=== PATIENT | female | born 1940 | race Caucasian/White ===

== ENCOUNTER → 2017-02-15 07:10 | Outpatient (CLI) | payer MEDICARE, BC ==
[~2017-02-15 07:10] MED LIST: ASPIRIN325 MG PO; BAYER CHEWABLE81 MG PO; CARAFATE1 G/10 ML PO; CRESTOR40 MG PO; FISH/FLAX/BORAGE; LANTUS SOL100 UNIT/1 SC; LASIX20 MG PO; LEVEMIR100 U/M1 INJ; LISINOPRIL5 MG PO; MULTIPLE VITAMI1 TA1 PO; NEXIUM40 MG PO; NORVASC10 MG PO; NOVOLOG MI100 UNIT/1; NOVOLOG100 U/M1 SC; PROTONIX I40 MG/VIAL PO; SYNTHROID88 MCG PO; TOPROL XL25 MG PO; TYLENOL PM1 TAB PO; ZYLOPRIM100 MG PO
[2017-02-15 07:46] LABS: ALBUMIN 3.3 g/dL (3.4-5.0); BILIRUBIN - DIRECT 0.06 mg/dL (0.00-0.30); BILIRUBIN - INDIRECT 0.31 mg/dL (0.00-1.00); BILIRUBIN - TOTAL 0.37 mg/dL (0.2-1.3); PROTEIN - SERUM 7.1 g/dL (6.4-8.2)
== END | disposition home or self-care (01) ==
LOC: D.US 01-21 09:30
PROVIDERS: Internal Medicine Gastroenterology
DX: K76.0 Fatty (change of) liver, not elsewhere classified (principal)

== ENCOUNTER 2017-02-20 12:06 | Day surgery (SDC) | payer MEDICARE, BC ==
[~2017-02-20] VITALS: Ht 157.5 cm; Wt 109.5 kg
--- NOTE | ~2017-02-20 | OP ---
PATIENT NAME: DARLYN JOHN MEDICAL RECORD: [id number] :40 LOCATION:D.OPS ADMISSION DATE: SURGEON: JOSUE SEYMOUR DO DATE OF OPERATION: 02/20/2017 PROCEDURE: Colonoscopy with snare polypectomy, cold forceps biopsy, and submucosal injection. INDICATION: Colon cancer screening. SCOPE: [employer] video pediatric colonoscope. MEDICATIONS: Propofol 650 mg IV per anesthesia. WITHDRAWAL TIME: Greater than 15 minutes. ESTIMATED BLOOD LOSS: Minimal. COMPLICATIONS: None. FINDINGS: Informed consent was given. The patient was made comfortable with the above medication. After reaching an adequate level of sedation by slow IV push, the patient was placed on her left side. A digital rectal examination was performed, and was normal. The endoscope was then advanced under direct visualization through the rectum to the cecum, evidenced by the appendiceal orifice and ileocecal valve. The scope was slowly withdrawn. The mucosa was carefully examined. In the cecum, there was an ulcerated large polypoid tumor visualized, which measured approximately 2.5 to 3 cm in diameter. It was just adjacent to the appendiceal orifice. Multiple biopsies were taken from the polypoid sites as well as the ____. A submucosal injection was made with tattoo for confirmation of the location. Another cecal polyp was identified, which was approximately 5 mm. It was removed with a hot snare in 1 piece and completely retrieved. There were 3 ascending colon polyps, which measured from 4 mm in size to 8 mm in size. They were all removed with hot snare polypectomy and completely retrieved. There were 4 transverse colon polyps, which measured from 4 mm to 8 mm in size. Each was removed in 1 piece and completely retrieved with a hot snare polypectomy. There were 2 descending polyps. One measured approximately 8 mm and was sessile. It was removed with a hot snare polypectomy in 1 piece and completely retrieved. A second polyp was pedunculated. It measured approximately 8 mm in size. It was removed in 1 piece, but not retrieved. There were multiple small and large mouth diverticuli, a severe nature in the entire colon, mostly recognized in the descending and sigmoid colon. Retroflexion was performed in the rectum with small nonbleeding internal hemorrhoids visualized. Scope was then withdrawn from the patient. The patient tolerated the procedure well and there were no complications. IMPRESSIONS: 1. Cecal tumor as described above with biopsies taken and tattoo placed for localization. 2. Multiple polyps as described above, with locations in the cecum, ascending colon, transverse colon, and descending colon. 3. Severe diverticulosis of the entire colon. 4. Small, nonbleeding, internal hemorrhoids. PLAN AND RECOMMENDATIONS: OPERATIVE REPORT [id number] DARLYN JOHN 1. Discharge home when recovery parameters are met. 2. Continue current diet of high fiber. 3. Continue current medications. 4. We will order a CT scan of the abdomen and pelvis regarding the cecal tumor. 5. We will await biopsies and likely refer to general surgery as well as oncology regarding the cecal tumor. 6. Follow up biopsy specimens with further recommendations pending results. TRANSINT:[id number] Voice Confirmation ID: [id number] DOCUMENT ID: [id number] JOSUE SEYMOUR DO CC: [id number] DICTATION DATE: 02/20/17 1538 MILK POWDER GRINDER: 02/21/17 0033 [facility] 02/20/17 [facility] [address] [place] [address]
[2017-02-20] MEDS ORDERED: VICTOZA0.6 MG/0.1 SQ (12:52)
[2017-02-20] MEDS ORDERED: OS-CAL500 MG PO (12:53)
[2017-02-20] MEDS ORDERED: GLUCOSAMINE HC500 MG PO ×2 (12:54)
[2017-02-20] MEDS ORDERED: [UNRECOGNIZED DRUG - OTHER] (12:55)
[2017-02-20] MEDS ORDERED: TUMERIC (12:55)
[2017-02-20 12:58] LABS: BASOPHILS 0.3 % (0-2); EOSINOPHILS 1.3 % (0-7); HEMATOCRIT 38.1 % (36.0-48.0); HEMOGLOBIN 12.8 g/dL (12-16); IMMATURE GRANULOCYTES 0.3 % (0-5); MCH 31.4 pg (26.0-34.0); MCHC 33.6 g/dL (31.0-37.0); MCV 93.4 fL (80.0-100.0); MEAN PLATELET VOLUME 9.4 fL (7.4-10.4); MONOCYTES 7.6 % (2-11); NEUTROPHILS 58.5 % (40-80); PLATELET COUNT 173 10x3/uL (130-400); RBC 4.08 10x6/uL (4.00-5.40); RDW 13.6 % (11.5-14.5); WBC 7.5 10x3/uL (4.8-10.8)
[2017-02-20] MEDS ORDERED: PROVENTIL HFA6.7 GM INH (13:01)
[2017-02-20 13:02] VITALS: BP 170/68; Ht 157.5 cm; Wt 109.5 kg
[2017-02-20] MEDS ORDERED: BREO ELLIPTA 11 EACH INH (13:02)
[2017-02-20] MEDS ORDERED: SINGULAIR10 MG PO (13:02)
[2017-02-20 13:10] LABS: ANION GAP 18.1 mmol/L (8-16); CALCIUM 9.4 mg/dL (8.5-10.1); CARBON DIOXIDE 22.6 mmol/L (21.0-32.0); CREATININE - SERUM 1.9 mg/dL (0.6-1.3); POTASSIUM - SERUM 3.7 mmol/L (3.5-5.1)
--- NOTE | 2017-02-20 16:11 | NUR ---
1545-RECGeoff FROM GI LAB. DR SEYMOUR HERE TO REPORT FINDINGS. 1555-FULL LIQUIDS SERVED.
--- NOTE | 2017-02-20 16:36 | NUR ---
1615-NO NAUSEA. IV D/C. DISCHARGE INSTRUCTIONS REVIEWED.
--- NOTE | 2017-02-20 17:01 | NUR ---
1650-D/C HOME VIA WC WITH
== END 2017-02-20 16:50 | disposition home or self-care (01) ==
LOC: D.OPS 12:06
PROVIDERS: Anesthesiology
DX: Z12.11 Encounter for screening for malignant neoplasm of colon (principal); C18.0 Malignant neoplasm of cecum; D12.0 Benign neoplasm of cecum; D12.3 Benign neoplasm of transverse colon; D12.2 Benign neoplasm of ascending colon; D12.4 Benign neoplasm of descending colon; K57.30 Diverticulosis of large intestine without perforation or abscess without bleeding; K64.8 Other hemorrhoids

== ENCOUNTER → 2017-02-22 13:28 | Outpatient (CLI) | payer MEDICARE, BC ==
[2017-02-20 13:02] VITALS: BMI 44.2
[~2017-02-22 13:28] MED LIST changes: +BREO ELLIPTA 11 EACH INH; +GLUCOSAMINE HC500 MG PO; +OS-CAL500 MG PO; +PROVENTIL HFA6.7 GM INH; +SINGULAIR10 MG PO; +TUMERIC; +VICTOZA0.6 MG/0.1 SQ; +[UNRECOGNIZED DRUG - OTHER]
== END | disposition home or self-care (01) ==
LOC: D.CT 13:28
DX: D49.0 Neoplasm of unspecified behavior of digestive system (principal)

== ENCOUNTER 2017-04-10 06:11 | Inpatient (IN) | payer MEDICARE, BC ==
[2017-04-09 12:46] LABS: BASOPHILS 0.4 % (0-2); EOSINOPHILS 1.5 % (0-7); HEMATOCRIT 37.8 % (36.0-48.0); HEMOGLOBIN 12.5 g/dL (12-16); IMMATURE GRANULOCYTES 0.1 % (0-5); LYMPHOCYTES 31.7 % (15-50); MCH 31.9 pg (26.0-34.0); MCHC 33.1 g/dL (31.0-37.0); MCV 96.4 fL (80.0-100.0); MEAN PLATELET VOLUME 9.8 fL (7.4-10.4); MONOCYTES 6.9 % (2-11); NEUTROPHILS 59.4 % (40-80); PLATELET COUNT 181 10x3/uL (130-400); RBC 3.92 10x6/uL (4.00-5.40); RDW 14.5 % (11.5-14.5); WBC 8.5 10x3/uL (4.8-10.8)
[2017-04-09 13:00] LABS: ANION GAP 15.4 mmol/L (8-16); CALCIUM 8.8 mg/dL (8.5-10.1); CARBON DIOXIDE 23.9 mmol/L (21.0-32.0); CREATININE - SERUM 1.6 mg/dL (0.6-1.3); POTASSIUM - SERUM 4.3 mmol/L (3.5-5.1)
[2017-04-09 13:16] LABS: APTT 28.1 SECONDS (22.8-39.4); INR 0.92 (0.85-1.17); PROTIME 12.1 SECONDS (11.6-15.0)
[~2017-04-10] VITALS: Ht 156.2 cm; Wt 106.6 kg
--- NOTE | ~2017-04-10 | CN ---
PATIENT NAME:DARLYN JOHN MEDICAL RECORD: [id number] : 40 LOCATION:[facility].CV07 ADMIT DATE: 04/10/17 ACCOUNT: [id number] CONSULTING PHYSICIAN: RAJINDER LEVIN MD REFERRING PHYSICIAN: JR LEW MD DATE OF CONSULTATION: 04/12/2017 REQUESTING PHYSICIAN: Jr Lew MD. REASON FOR CONSULTATION: Acute dyspnea and acute hypoxic respiratory failure. HISTORY OF PRESENT ILLNESS: Ms. John is a 76-year-old female, who was recently diagnosed with CA of the colon. She underwent partial colectomy. Since last night, the patient had worsening shortness of breath. She has a cough without sputum production. She has been running some low-grade fever. Denies any chest pain. She was put on supplemental oxygen. The patient does have a history of asthma, possible COPD and she was evaluated in [facility] as well as [facility] in [place]. PAST MEDICAL HISTORY: 1. Asthma. 2. Possible chronic obstructive pulmonary disease. 3. Obstructive sleep apnea. 4. History of granulomatous disease in the past. CT scan has 4.5 mm nodule in 2013 and that has been worked up. 5. Gastroesophageal reflux disease. 6. History of skin cancer. 7. History of pneumonia in the past. PAST SURGICAL HISTORY: 1. Back surgery. 2. Right trigger thumb release. 3. Right rotator cuff surgery. 4. Foot surgery. 5. She has a AV fistula placement. 6. Now, she is status post partial colectomy. ALLERGIES: SHE IS ALLERGIC TO IV CONTRAST DYE. MEDICATIONS: Albuterol ipratropium nebulizer. Her other medication is reviewed. PERSONAL AND SOCIAL HISTORY: The patient is , lives with her . She is a nonsmoker and nondrinker. FAMILY HISTORY: Noncontributory. PHYSICAL EXAMINATION: GENERAL: Now, the patient is lying comfortably in bed. She is in mild distress. VITAL SIGNS: The blood pressure is 144/50, pulse is 91, respirations 20, temperature 98.8 and SpO2 is 93% on 6 liters nasal cannula. HEENT: Conjunctivae are pink. Sclerae nonicteric. NECK: Supple. No JVD. CONSULT REPORT [id number] DARLYN JOHN CHEST: There are bilateral crackles. No wheezing. HEART: Rhythm regular, normal sound. No murmur. ABDOMEN: Soft. Bowel sounds present. No hepatosplenomegaly. RECTAL: Deferred. EXTREMITIES: No cyanosis, no clubbing, no pedal edema. SKIN: Warm, normal turgor. CENTRAL NERVOUS SYSTEM: The patient is awake and alert. There is no obvious cranial nerve abnormality. The gait was not tested. IMAGING: Chest radiograph on the 09 of April, there were no infiltrates and on today's chest x-ray, there is bilateral infiltrate, possible edema, possible hospital-acquired pneumonia. OTHER LABORATORY DATA: CBC: The WBC is 17,000, hemoglobin 10.4, hematocrit 33.3, the platelet count is 159. Chemistry: Sodium is 139, potassium 5.3, BUN is 31, creatinine 2.1. IMPRESSION: 1. Acute hypoxic respiratory failure. 2. Bilateral hospital acquired-pneumonia. 3. Possible pulmonary edema. 4. Asthma. 5. Obstructive sleep apnea. 6. Status post partial colectomy. 7. Cancer of the colon. 8. History of granulomatous disease in the past. The workup was done in 2012 consistent with a fungal infection. 9. Chronic kidney disease. 10. Leukocytosis secondary to pneumonia. RECOMMENDATIONS: 1. I will start her on Levaquin, cefepime and vancomycin to cover for Gram-negative rods as well as a questionable methicillin-resistant Staphylococcus aureus. 2. Albuterol/ipratropium nebulizer. 3. Start on Brovana and budesonide nebulizer. 4. Follow up labs and chest radiograph. 5. Check the proBNP and follow up labs and chest radiograph in the morning. Dr. Lew, thank you for involving me in the care of Ms. John. The patient will continue her BiPAP at night. TRANSINT:[id number] Voice Confirmation ID: [id number] DOCUMENT ID: [id number] RAJINDER LEVIN MD CC: [id number] DICTATION DATE: 04/12/17 1530 SALES MARKET LEADER: 04/12/17 2333 ADM IN [address] [place] [address]
--- NOTE | ~2017-04-10 | DS ---
PATIENT:DARLYN JOHN :40 MEDICAL RECORD: [id number] DISCHARGE SUMMARY ADMISSION DATE: 04/10/17 DISCHARGE DATE: PRINCIPAL DIAGNOSES: 1. Adenocarcinoma of the cecum, T1N0M0. 2. Diabetes mellitus. 3. Chronic kidney disease stage IV. 4. Acute blood loss anemia, not requiring a transfusion. 5. Morbid obesity. 6. Postoperative pneumonia. 7. Respiratory insufficiency. 8. Thrombocytopenia. 9. Hypokalemia. PROCEDURE: Hand-assisted laparoscopic right hemicolectomy. HOSPITAL COURSE: The patient underwent the above operative procedure. The patient developed respiratory insufficiency. She had been moved to the intensive care unit. Antibiotics were continued. Her respiratory status improved. She was moved to the floor. She was tolerating a diet. Bowel function returned. She is being dismissed home. I am going to leave the decision with regard to steroid tapering and/or breathing treatments and antibiotics up to the patient's epidemiology investigator. She is going to be dismissed home on [place] for pain. Discharge instructions were given to the patient verbally by me. She was instructed to call for any severe nausea, vomiting, fever, or chills. She is not to get her incision submerged. I will see her in the office in 2-3 weeks. TRANSINT:[id number] Voice Confirmation ID: [id number] DOCUMENT ID: [id number] JR LEW MD CC: RAJINDER LEVIN MD, EDVIN PARIS MD, CARLIE SAUNDERS MD, [id number] MD and YOLY JONES MD DICTATION DATE: 04/16/17 0955 COTTON INSPECTOR: 04/16/17 1037 ADM IN [address] [place] [address]
[~2017-04-10 06:11] MED LIST changes: +ALENDRONATE SOD70 MG PO; +FISH OIL 1,0001 CA1 PO; +SYNTHROID75 MCG PO; -SYNTHROID88 MCG PO; +VITAMIN D31000 UNIT PO; -[UNRECOGNIZED DRUG - OTHER]; +[UNRECOGNIZED DRUG - OTHER] PO
[2017-04-10 10:06] VITALS: BMI 43.7
[2017-04-10 18:12] VITALS: BP 145/62
[2017-04-10 20:00] VITALS: BP 125/47
--- NOTE | 2017-04-10 20:01 | NUR ---
RECIEVED AWAKE,ALERT,ORIENTED X 3. SKIN WARM DRY.RESP EVEN AND UNLABORED.O2@ 3L PER NC ON. NO DISTRESS NOTED. IV INFUSING TO RIGHT IJ WITHOUUT REDNESS OR EDEMA NOTED. ABDOMEN WIHT 2 BANDAIDS MIDLINE AND DRG TO RIGHT ABD. INTACT WITHOUT DRAINAGE NOTED. SALES DATA ANALYST IN USE FOR PAIN CONTROL.SCHAFFER PATENT AND DRAINING AQUA COLORED URINE. CL IN REACH. AT BEDSIDE.
--- NOTE | 2017-04-10 23:09 | NUR ---
EYES CLOSED RESPIRATIONS WITH EASE AND UNLABORED.
[2017-04-10 23:12] VITALS: BP 132/50; BMI 43.7
[2017-04-11] VITALS: BP 135/53
[2017-04-11 04:00] VITALS: BP 116/62
--- NOTE | 2017-04-11 05:05 | NUR ---
AROUSES EASILY. NO COMPLAINTS VOICED. CL IN REACH.
--- NOTE | 2017-04-11 07:30 | NUR ---
RECIEVED PT DURING WALKING ROUNDS. PT RESTING IN BED WITH COMPLAINTS OF PAIN OF A 4 ON A SCALE OF 1-10, EVENT COORDINATOR MARKETING AND SALES IN USE. ASSESSMENT DONE PER FLOWSHEET. BED IN LOW POSITION AND CALL LIGHT WITHIN REACH. WILL CONTINUE TO MONITOR.
[2017-04-11 09:15] VITALS: BP 150/65
[2017-04-11 12:57] VITALS: BP 149/60
[2017-04-11 13:26] VITALS: Ht 156.2 cm; Wt 106.6 kg
[2017-04-11 15:45] VITALS: BP 144/58
[2017-04-11 20:00] VITALS: BP 151/61
[2017-04-12] VITALS: BP 151/64
--- NOTE | 2017-04-12 03:30 | NUR ---
ASSESSED AT THE BEGINNING OF THE SHIFT. PT IS ALERT AND ORIENTED, ABLE TO VERBALIZE NEEDS. SHE HAS 3 LAP SITES FROM SURGERY AND HER SCHAFFER HAS GREEN URINE IN THE BAG. THERE IS A FISTULA TO HER LEFT ARM AND WE ARE STILL ONLY GIVING HER ICE CUBES. THERE IS A DILAUDID DRILL SETUP OPERATOR FOR PAIN CONTRO AND IT SEEMS TO BED HELPIN HER KEEP IT UNDER CONTROL. THE BED IS LOW, RAILS UP X'S 2 WITH THE CALL LIGHT AT HAND.
[2017-04-12 04:00] VITALS: BP 170/69
[2017-04-12 08:32] VITALS: BP 123/45
--- NOTE | 2017-04-12 10:30 | NUR ---
FAMILY IN ROOM WITH PT AT THIS TIME. RESPIRATIONS EVEN AND NON LABORED. CALL LIGHT IN REACH, WILL CONTINUE WITH PLAN OF CARE.
[2017-04-12 11:09] LABS: BASOPHILS 0.1 % (0-2); EOSINOPHILS 0 % (0-7); HEMATOCRIT 33.3 % (36.0-48.0); HEMOGLOBIN 10.4 g/dL (12-16); IMMATURE GRANULOCYTES 0.8 % (0-5); LYMPHOCYTES 5.4 % (15-50); MCH 31.2 pg (26.0-34.0); MCHC 31.2 g/dL (31.0-37.0); MEAN PLATELET VOLUME 9.4 fL (7.4-10.4); MONOCYTES 5.4 % (2-11); NEUTROPHILS 88.3 % (40-80); PLATELET COUNT 159 10x3/uL (130-400); RBC 3.33 10x6/uL (4.00-5.40); RDW 15.2 % (11.5-14.5)
[2017-04-12 11:23] LABS: ALBUMIN 2.7 g/dL (3.4-5.0); ANION GAP 26.2 mmol/L (8-16); BILIRUBIN - TOTAL 0.57 mg/dL (0.2-1.3); CALCIUM 7.4 mg/dL (8.5-10.1); CARBON DIOXIDE 13.1 mmol/L (21.0-32.0); CREATININE - SERUM 2.1 mg/dL (0.6-1.3); POTASSIUM - SERUM 5.3 mmol/L (3.5-5.1); PROTEIN - SERUM 6.6 g/dL (6.4-8.2)
[2017-04-12 12:38] VITALS: BP 144/50
[2017-04-12 16:12] VITALS: BP 128/41
[2017-04-12 20:00] VITALS: BP 157/53
[2017-04-13] VITALS (23 sets, daily range): BP systolic 131–169; BP diastolic 40–80
--- NOTE | 2017-04-13 05:11 | NUR ---
ASSESSED AT THE BEGINNING OF THE SHIFT. PT WAS ALERT AND ORIENTED. SON HAS REMAINED AT THE BEDSIDE DURING THE NIGHT. SHE WAS ORIENTED AND DOING WELL WITH O2 SATS IN LOW 90'S DURING THE FIRST OF THE SHIFT. SHE TOOK HER MEDS WELL AND HAD NO PROBLEMS UNTIL ABOUT ABOUT MIDNIGHT. AFTER PUTTING ON HER BIPAP SHE WAS MOUTH BREATHING AND HER O2 SATS DROPPED TO THE MID TO HIGH 80'S. SHE BECAME UPSET AND WORRIED SHE WAS GOING TO HAVE SOME STRANGE PNEUMONIA WHICH SHE PRO BEFORE. HER SON BECAME UPSEET BECAUSE SHE WAS SO UPSET AND WAS STARTING TO GET CONFUSED. WE CHANGED HER O2 TO OXIMIZER AT 10 AND COULD KEEP HER O2 AT 88-90. SHE WAS STILL UPSET AND CONFUSED AND HER SON DEMAMDED THAT THE MD BE CALLED. DR LEVIN WAS CALLED AND ORDERED REQUESTED FOR ANXIETY MEDS. HE GAVE US ATIVAN 1 MG EVERY 2 HRS PRN BUT ALSO SAID TO GIVE LASIX 40 MG IF SHE WAS WET AND TRANSFER TO ICU. NO BED WERE AVAIBLE UNTIL NOW AND AT THIS TIME WE ARE GOING TO SEND HER TO CV-ICU TO A AVAIBLE BED. HER SON IS STILL WITH HER AND ALL MEDS WILL BE GIVEN BEFORE SHE IS TRANSFERRED.
--- NOTE | 2017-04-13 06:40 | NUR ---
ARRIVED TO ROOM VIA BED. ASSISTED WITH TRANSFER X4 NURSING STAFF TO ICU BED. LETHARGIC. ON 10L/MIN OXIMIZER. SCREAMS OUTLOUD WHEN TURNING SIDE TO SIDE TO CHANGE LINENS OUT FROM UNDER HER. SON AT BEDSIDE. UPDATE OBTAINED. CPAP OBTAINED VIA SON FROM [facility] ROOM. CONNECTED TO ICU MONITORING EQUIPMENT. WILL MONITOR AND GIVE REPORT TO DAY SHIFT RN.
[2017-04-13 06:43] LABS: BASOPHILS 0 % (0-2); EOSINOPHILS 0 % (0-7); HEMATOCRIT 29.6 % (36.0-48.0); HEMOGLOBIN 9.8 g/dL (12-16); IMMATURE GRANULOCYTES 0.6 % (0-5); LYMPHOCYTES 5.7 % (15-50); MCH 31.6 pg (26.0-34.0); MCHC 33.1 g/dL (31.0-37.0); MEAN PLATELET VOLUME 9.2 fL (7.4-10.4); MONOCYTES 6.3 % (2-11); NEUTROPHILS 87.4 % (40-80); PLATELET COUNT 134 10x3/uL (130-400); RDW 15.1 % (11.5-14.5)
[2017-04-13 06:44] LABS: MCV 95.5 fL (80.0-100.0); WBC 11.9 10x3/uL (4.8-10.8)
[2017-04-13 07:03] LABS: ANION GAP 18.9 mmol/L (8-16); CALCIUM 7.6 mg/dL (8.5-10.1); CARBON DIOXIDE 16.8 mmol/L (21.0-32.0); CREATININE - SERUM 2.8 mg/dL (0.6-1.3); POTASSIUM - SERUM 4.7 mmol/L (3.5-5.1)
--- NOTE | 2017-04-13 07:15 | NUR ---
TRANSFER FROM FLOOR. AROUSES TO VERBAL STIMULI. FOLLOWS COMMANDS. FAMILY STATES SHE HAS BEEN HAVING TROUBLE BREATHING AND ANXIOUS ALL NIGHT. RESTING NOW. EXPIRATORY WHEEZES NOTED VITO UPON CHEST AUSCULTATION.
--- NOTE | 2017-04-13 10:00 | NUR ---
ASSISTED WITH TURNING AND REPOSITIONING. BECOMES SOB ON EXERTION.
--- NOTE | 2017-04-13 12:00 | NUR ---
RESTING WITH EYES CLOSED. NO ACUTE DISTRESS NOTED. WEANING O2.
--- NOTE | 2017-04-13 18:00 | NUR ---
@ BEDSIDE. CONDITION UPDATE GIVEN. NO ACUTE DISTRESS NOTED.
--- NOTE | 2017-04-13 19:15 | NUR ---
SHIFT ASSESSMENT COMPLETE, PATIENT AWAKE AND ALERT WHEN ENTERING ROOM, IS CONFUSED TO TIME, PLACE, AND SITUATION. REORIENTED AT THIS TIME. LUNG SOUNDS DIMINISHED, AND EXP WHEEZE HEARD THROUGHOUT. RR SHALLOW, BUT NONLABORED. O2 @ 4L VIA OXYMIZER WITH 02 SATURATION OF 93%. S1S2 WITH NSR ON MONITOR. BOWEL SOUNDS HYPOACTIVE, ABDOMEN DISTENDED AND SOFT TO PALPATION. SCHAFFER CATHETER DRAINING GREEN URINE FROM DYE. SCHAFFER CARE PROVIDED AT THIS TIME. PERIPHERAL PULSES +2, CAP REFILL < 3 SECONDS. GENERALIZED EDEMA IN EXTREMITIES. RIJ DRESSING C/D/I, SEE IV FLOWSHEET FOR DRIPS. DILAUDID NETWORK FIREWALL ENGINEER FOR PAIN MANAGEMENT. DENIES PAIN AT THIS TIME. VSS, WILL MONITOR.
--- NOTE | 2017-04-13 20:00 | NUR ---
PATIENT COMPLAINING OF A DRY MOUTH. MOUTH SWABS PROVIDED TO MOISTEN. REPORTS RELIEF.
--- NOTE | 2017-04-13 21:10 | NUR ---
FAMILY AT BEDSIDE, UPDATE PROVIDED.
--- NOTE | 2017-04-13 23:05 | NUR ---
REASSESSMENT COMPLETE, NO ACUTE CHANGES, SEE REASSESSMENT FLOWSHEET. RR EVEN AND NONLABORED. VSS
[2017-04-14] VITALS (24 sets, daily range): BP systolic 112–184; BP diastolic 38–76
--- NOTE | 2017-04-14 01:03 | NUR ---
PATIENT RESTING WITH EYES CLOSED. NO DISTRESS NOTICED. VSS, O2 SATURATION 93%
--- NOTE | 2017-04-14 03:10 | NUR ---
REASSESSMENT COMPLETE, SEE FLOWSHEET. NO CHANGES, NO DISTRESS SEEN. DENIES NEED.
--- NOTE | 2017-04-14 05:05 | NUR ---
BLOOD SPECIMEN SENT TO LAB.
[2017-04-14 05:31] LABS: BASOPHILS 0 % (0-2); EOSINOPHILS 0 % (0-7); HEMATOCRIT 28.3 % (36.0-48.0); HEMOGLOBIN 9.5 g/dL (12-16); IMMATURE GRANULOCYTES 0.4 % (0-5); LYMPHOCYTES 4.2 % (15-50); MCH 31.3 pg (26.0-34.0); MCHC 33.6 g/dL (31.0-37.0); MCV 93.1 fL (80.0-100.0); MEAN PLATELET VOLUME 9.4 fL (7.4-10.4); MONOCYTES 2.3 % (2-11); NEUTROPHILS 93.1 % (40-80); PLATELET COUNT 132 10x3/uL (130-400); RBC 3.04 10x6/uL (4.00-5.40); RDW 15.2 % (11.5-14.5); WBC 8.2 10x3/uL (4.8-10.8)
[2017-04-14 05:51] LABS: ANION GAP 16.6 mmol/L (8-16); CALCIUM 8.1 mg/dL (8.5-10.1); CARBON DIOXIDE 18.3 mmol/L (21.0-32.0); CREATININE - SERUM 2.8 mg/dL (0.6-1.3); POTASSIUM - SERUM 3.9 mmol/L (3.5-5.1); PRE-ALBUMIN 13.4 mg/dL (18.0-35.7); VANCOMYCIN - RANDOM 20.4 ug/mL (10.0-20.0)
--- NOTE | 2017-04-14 07:00 | NUR ---
AROUSES EASILY. ASSESSMENT COMPLETE. NO DISTRESS NOTED.
--- NOTE | 2017-04-14 08:15 | NUR ---
COMPLETE BATH AND LINEN CHANGE.
--- NOTE | 2017-04-14 13:00 | NUR ---
WOKE UP ANXIOUS. VERBAL SUPPORT GIVEN. CALLED FOR EMOTIONAL SUPPORT.
--- NOTE | 2017-04-14 18:20 | NUR ---
DR. SAUNDERS NOTIFIED OF CONSULT AND INCREASING BLOOD SUGAR. ORDERS REC'D.
--- NOTE | 2017-04-14 19:00 | NUR ---
REPORT RECEIVED AND ASSESSMENT COMPLETED. SEE FLOWSHEET FOR FULL DETAILS. PT WAS RAPID FROM FLOOR. O2 AT 4L OXYMISER. RESPIRATIONS ARE SHALLOW, AND CRACKLES CAN BE HEARD IN UPPER LOBES. DIMMINISHED BREATH SOUNDS OTHERWISE. O2 SAT IS 97%. WILL MONITOR CLOSELY FOR CHANGES.
--- NOTE | 2017-04-14 21:00 | NUR ---
2100 MEDS GIVEN. FAMILY AT BEDSIDE. PT WAS VISITED BY DR SAUNDERS. 15 ADDITIONAL UNITS OF LANTUS ORDERED FOR A TOTAL OF 30 FOR THE EVENING.SOLU-MEDROL DECREASED TO Q12 FROM Q8. NO OTHER CHANGES AT THIS TIME WILL MONITOR
--- NOTE | 2017-04-14 23:00 | NUR ---
REASSESSMENT COMPLETED. SEE FLOWSHEET FOR FULL DETAILS. NO OTHER CHANGES AT THIS TIME. VSS. WILL CONTINUE TO MONITOR.
[2017-04-15] VITALS (15 sets, daily range): BP systolic 144–171; BP diastolic 48–64
--- NOTE | 2017-04-15 00:52 | NUR ---
PT EXPERIENCED ANXIETY OVER OXYGENATION. PRN ATIVAN GIVEN. PT RETURNED TO BASELINE AT THIS TIME O2 SAT 98% WILL CONTINUE TO MONITOR
--- NOTE | 2017-04-15 03:00 | NUR ---
REASSESSMENT COMPLETED. SEE FLOWSHEET FOR FULL DETAILS. NO OTHER CHANGES AT THIS TIME. WILL MONITOR
--- NOTE | 2017-04-15 05:00 | NUR ---
NO CHANGES IN PATIENT STATUS AT THIS TIME. I&O COMPLETED AND LABS DRAWN.PT RESTING IN ROOM VSS. STILL BREATHING SHALLOW. NO CHANGES IN BREATH SOUNDS. WILL CONTINUE TO MONITOR.
[2017-04-15 06:18] LABS: BASOPHILS 0 % (0-2); EOSINOPHILS 0 % (0-7); HEMATOCRIT 27.8 % (36.0-48.0); HEMOGLOBIN 9.5 g/dL (12-16); IMMATURE GRANULOCYTES 0.5 % (0-5); LYMPHOCYTES 6.1 % (15-50); MCH 31.8 pg (26.0-34.0); MCHC 34.2 g/dL (31.0-37.0); MEAN PLATELET VOLUME 9.4 fL (7.4-10.4); MONOCYTES 6.4 % (2-11); PLATELET COUNT 125 10x3/uL (130-400); RBC 2.99 10x6/uL (4.00-5.40); RDW 15.1 % (11.5-14.5); WBC 7.4 10x3/uL (4.8-10.8)
[2017-04-15 07:08] LABS: ANION GAP 17.1 mmol/L (8-16); CALCIUM 8.5 mg/dL (8.5-10.1); CARBON DIOXIDE 21.3 mmol/L (21.0-32.0); CREATININE - SERUM 2.6 mg/dL (0.6-1.3); POTASSIUM - SERUM 3.4 mmol/L (3.5-5.1)
--- NOTE | 2017-04-15 07:16 | NUR ---
REPORT RECD PT CARE ASSUMED. PT IS ALERT AND ORIENTED X 4. PT HAS OXIMIZER @ 4L. RESP RATE/QUALITY WNL, LUNG SOUND SLIGHTLY DIMINISHED THROUGHOUT. BOWEL SOUNDS HYPO ACTIVE. PPP, SCDS/SCHAFFER IN PLACE. AFIB PER CM. SEE SHIFT ASSESSMENT FOR FURTHER DETAIL. VSS. WILL MONITOR.
--- NOTE | 2017-04-15 07:50 | NUR ---
PT REPOSITIONED IN BED AND PROVIDED WITH BREAKFAST TRAY. PT FEEDS INDEPENDENTLY. TOLERATING CLR LIQUIDS WELL.
--- NOTE | 2017-04-15 09:27 | NUR ---
NUTRITION MONITORING & EVAL CHART REVIEWED, PT TOLERATING CLEAR LIQUIDS. SPOKE WITH DR. LEW RE:TPN. HE WANTS TO HOLD OFF ON TPN AND ADVANCE HER DIET. RD FOLLOWING
--- NOTE | 2017-04-15 10:05 | NUR ---
* Is the patient Alert and Oriented? Yes 0 * How many steps to enter\exit or inside your home? Ramp 0 * PCP Dr. Barron 0 * Pharmacy [facility] on [address] * Preadmission Environment Home with Family 0 * ADLs Independent 0 * Equipment CPAP Glucometer 0 * List name and contact numbers for known caregivers / representatives who currently or will assist patient after discharge: Spouse - Koby [phone] Son - Juan [phone] 0 * Additional services required to return to the preadmission environment? No 0 * Can the patient safely return to the preadmission environment? Yes 0 * Has this patient been hospitalized within the prior 30 days at any hospital? No Patient Name: DARLYN JOHN Admission Status: Elective Accout number: [id number] Admission Date: 04-10-2017 : 1940 Admission Diagnosis:MALIGNANT NEOPLASM OF CECUM Attending: BECKA Current LOS: 5 Anticipated DC Date: 04-17-2017 Planned Disposition: Home Primary Insurance: MEDICARE A & B Discharge Planning Comments: CM met with patient to assess dc plans/needs. Patient states she lives at home with her , Koby. She reports she is independent with all ADL's & IADL's. She does not use any assistive devices for mobility. She states she had home health several years ago but does not think she will need services at discharge. CM will follow & assist as needed. Anesthesia Resident: Amber Renee
--- NOTE | 2017-04-15 11:00 | NUR ---
OK TO TRANSFER PER . PT ON 2L NC TOLERATING WELL. HAS LOOSE BM ON COMMODE. AMBULATED WITH ONE ASSIST WELL.
--- NOTE | 2017-04-15 11:43 | NUR ---
REPORT CALLED TO JEFFREY CABALLERO. PT STABLE FOR TRANSPORT.
--- NOTE | 2017-04-15 12:05 | NUR ---
RECEIVED TO ROOM 2217 AT THIS TIME FROM CVICU VIA WHEELCHAIR. AT BEDSIDE. PT ALERT AND ORIENTED. RIGHT IJ CENTRAL LINE PATENT. PT REFUSES SCD'S. OXYGEN ON 2L VIA NC. CALL LIGHT IN REACH. SCHAFFER CATHETER PATENT AND DRAINING TO GRAVITY. WILL CONTINUE WITH PLAN OF CARE.
--- NOTE | 2017-04-15 13:06 | CN ---
PATIENT NAME:DARLYN JOHN MEDICAL RECORD: [id number] : 40 LOCATION:D.MS [place] ADMIT DATE: 04/10/17 ACCOUNT: [id number] CONSULTING PHYSICIAN: CARLIE SAUNDERS MD REFERRING PHYSICIAN: JOE LEW MD DATE OF CONSULTATION: 04/14/2017 ADMITTING PHYSICIAN: Dr. Joe Lew. REASON FOR CONSULTATION: Hyperglycemia, postoperative. HISTORY OF PRESENT ILLNESS: The patient is a 76-year-old female with chronic renal insufficiency stage IV, diabetes mellitus. She underwent a right colon resection with end-to-end reanastomosis for adenocarcinoma earlier this week. She has been n.p.o. until the day and she was taking clear liquids and then receiving normal saline IV. She says for diabetes she normally takes ____ units of Lantus in the evening and 16 units of NovoLog before breakfast, 18 units before lunch and supper respectively. She developed some respiratory distress postoperatively with the pleural effusion and was placed on multi-dose antibiotics as well as IV steroids, Solu-Medrol 40 mg q.8 hours. As a result her blood sugars are now nearing 400. PAST MEDICAL HISTORY: Chronic renal insufficiency stage IV, AODM, on insulin, COPD, asthma, recent ulcerative adenocarcinoma of the colon, post-resection, history of hiatal hernia, gastric ulcer, histoplasmosis of lungs, history of cataracts, history of CAD, post-angioplasty and stent placement, essential hypertension, history of pneumonia, obstructive sleep apnea on CPAP, history of cancer of the skin, obesity, osteoporosis, hyperlipidemia. ALLERGIES: IODINE CONTRAST. MEDICATIONS: As per MAR and insulin as above. FAMILY HISTORY: Noncontributory. SOCIAL HISTORY: Never smoked or drank alcohol or used recreational drugs. REVIEW OF SYSTEMS: GENERAL: Feels pretty well for postoperative state. No fever. HEENT: No recent visual change, sinus congestion, sore throat or hearing difficulty. RESPIRATORY: She has had mild shortness of breath improved with supplemental O2 and at rest. She denies cough or sputum production. CARDIAC: No chest pain. GASTROINTESTINAL: No nausea, and is having some flatus and small stool this morning. She has minimal postoperative abdominal pain currently. GENITOURINARY: No dysuria. GYNECOLOGIC: No vaginal bleeding. ENDOCRINE: Denies polyuria, polydipsia, heat or cold intolerance. NEUROLOGIC: No history of stroke, TIA, or vascular headaches. INTEGUMENT: No rash or itching. PSYCHIATRIC: Denies depressed mood. PHYSICAL EXAMINATION: VITAL SIGNS: Heart rate of 108, respirations of 21, blood pressure 151/62, sat CONSULT REPORT [id number] DARLYN JOHN 96% on 4 liter Oxymizer. HEENT: Normocephalic. Eyes are clear. NECK: Supple, without bruits. CHEST: She has no retractions noted. She has some wheezes and crackles in the left lung base and dullness to percussion at the left lower lobe. ABDOMEN: Obese, soft with minimal bowel sounds appreciated. Wound appears clean. GENITOURINARY: Deferred. EXTREMITIES: No CCE. NEUROLOGICAL: Grossly oriented to person, place, and time. Motor and sensory is intact. Gait not tested. LABORATORY DATA: White count 8000, H&H of 9.5 and 28.3, platelet count 132,000. Chemistry: Potassium is 3.9, glucose is 391. Random vancomycin level is 30.4, INR is 0.92. IMAGING: Chest x-ray shows improving left lower lobe infiltrate. ASSESSMENT: 1. Type 2 diabetes mellitus requiring insulin therapy now with hyperglycemia, postoperative. 2. Adenocarcinoma of the right colon, post resection. 3. Chronic renal insufficiency, stage IV. 4. Hypertension. 5. Obesity. 6. Hyperlipidemia. 7. Hypoxia with respiratory failure due to hospital-acquired pneumonia, improving clinically. 8. Obstructive sleep apnea. 9. Morbid obesity. 10. Pulmonary histoplasmosis, nonactive. PLAN: I have given her 30 units of Lantus insulin tonight and placed on sliding scale high-dose NovoLog. We will drop her IV Solu-Medrol to q.12 hours from q.8 hours as she is improving from respiratory standpoint, not actively wheezing currently. Will follow with you. TRANSINT:[id number] Voice Confirmation ID: [id number] DOCUMENT ID: [id number] CARLIE SAUNDERS MD at 1306 CC: [id number] DICTATION DATE: 04/14/171941 LEHR TENDER: 04/15/17 0100 ADM [address] [place] [address]
--- NOTE | 2017-04-15 15:46 | OP ---
PATIENT NAME: DARLYN JOHN MEDICAL RECORD: [id number] :40 LOCATION:D.MS [id number] ADMISSION DATE:04/10/17 SURGEON: JR LEW MD DATE OF OPERATION: 04/10/2017 PREOPERATIVE DIAGNOSIS: Adenocarcinoma of the cecum. POSTOPERATIVE DIAGNOSIS: Adenocarcinoma of the cecum. PROCEDURE: Laparoscopic hand-assisted right hemicolectomy. SURGEON: Jr Lew MD OUTREACH ASSISTANT: None. BLOOD LOSS: Minimal. ANESTHESIA: General. COMPLICATIONS: None. The risks, possible complications and alternatives to procedure were explained to the patient. She elects to proceed. OPERATIVE COURSE: The patient was conveyed to the operating room electively on 04/10/2017. General anesthesia was induced by anesthesia staff. A transverse incision was accomplished between the anterior superior iliac spine and the right costal margin. I dissected down through skin and subcutaneous tissues. The anterior fascia was incised along the direction of its fibers. I then mobilized the rectus muscles medially. The internal oblique muscle was incised along the direction of its fibers. Stay sutures were placed on either side of the peritoneum, which was incised. The GelPort was then placed. An incision was accomplished within the umbilicus. There was an umbilical hernia. I sharply cleaned the fascia from around the umbilical hernia. Stay sutures of 0 Vicryl sutures were placed on either side of the umbilical hernia defect. Through a trocar, I then replaced through the GelPort site, CO2 insufflation was begun. An abdominal survey was undertaken laparoscopically. Another trocar at this time, a 5-mm trocar was inserted in the right upper quadrant. I began to takedown the hepatic flexure with the EnSeal device. I swept down the duodenum. I took down the right white line of Toldt. I mobilized the right colon. I then took the top of the GelPort off. I exteriorized the right colon as well as the ileum and the proximal transverse colon. A window was created in the window of the ileal mesentery. I stapled across the ileum with ALEXI-75 stapler. I then transilluminated, identified the middle colic artery. I created a window in the mesocolon. I stapled across the mesocolon just proximal to the hepatic flexure. The interposed mesentery was taken down with the EnSeal device. I opened the specimen on the back table. I then sent it to the pathologist and he stated that there were grossly clear margins. I wanted to take a little bit more of the transverse colon. I took some of the omentum off the transverse colon. I created a window in the mesentery of the transverse colon and I stapled across the transverse colon with a ALEXI-75 OPERATIVE REPORT [id number] DARLYN JOHN A stapler. The interposed mesentery was taken down with the EnSeal device. I placed the ileum and the transverse colon into apposition side by side. A small enterotomy and small colotomy were accomplished. Anvils of the ALEXI-75 stapler were advanced and then fired. The resulting intracolonic defect was closed with a single firing of the TA 60 stapler. I oversewed the staple line with 3-0 Vicryl sutures. I then closed the mesenteric rent with a running #1 Vicryl. I draped some of the omentum over the anastomosis and tied it down with a few of the 3-0 Vicryl sutures. I ensured that the small bowel was not twisted on its mesentery. I noted no evidence of small bowel injury. I returned the anastomosis to the peritoneal cavity. I irrigated and aspirated the right upper quadrant. There was no bleeding even at low pressure of 8. The umbilical hernia was closed with a single 0 Vicryl in a [id number]-us-[id number] fashion. A 4-0 Vicryl Rapide were used for the skin at the umbilicus. The 5-mm trocar site was closed with a single interrupted 3-0 Vicryl suture. The peritoneum at the right-sided incision was closed with a running #1 Vicryl. The internal oblique and transverse abdominis muscles were closed with running #1 Vicryls. The anterior fascia was closed with a running #1 Vicryl. The deep adipose tissue was closed with interrupted 3-0 Vicryls. The subcutaneous adipose tissue was closed with interrupted 3-0 Vicryls. The skin was approximated with a running intracuticular 3-0 Vicryl. Benzoin and Steri-Strips were applied. The patient was then extubated and conveyed to post-anesthesia care unit where she was in stable condition. TRANSINT:[id number] Voice Confirmation ID: [id number] DOCUMENT ID: [id number] CC: Dr. Alf Elizabeth Jr. JR LEW MD at 1546 CC: DR. ALF ELIZABETH JR, KRISTA DEL CID MD and LION,[id number] DICTATION DATE: 04/10/17 1642 LUNCHROOM AIDE: 04/11/17 0109 ADM IN [place] [id number] [place] [id number]
--- NOTE | 2017-04-15 17:25 | NUR ---
SCHAFFER CATHETER D/C WITH CATH TIP INTACT PER ORDER. PT TOLERATED WITHOUT COMPLAINTS.
--- NOTE | 2017-04-15 18:45 | NUR ---
PT VOIDED IN COMMODE AT THIS TIME WITHOUT DIFFICULTY.
--- NOTE | 2017-04-15 20:00 | NUR ---
ASSESSMENT PER FLOWSHEET.IV PATENT RT IJ OF NS AT 30CC'S/HR SITE CLEAR. SPOUSE IN ROOM . PATIENT SITTING UPRIGHT IN CHAIR AT BEDSIDE. O2 ON 2L/M PER NC. DEMINISHED LOWER BASES. NO DISTRESS. LAP SITES X3 TO ABDOME C/D/I.
--- NOTE | 2017-04-15 21:30 | NUR ---
MEDS GIVEN PER NOV. GLZH=[phone] UNITS REGULAR INSULIN GIVEN PER S/S.
--- NOTE | 2017-04-16 | NUR ---
CPAP ON EYES CLOSED RESPIRATIONS WITH EASE AND UNLABORED.
--- NOTE | 2017-04-16 03:00 | NUR ---
UP WITH HELP TO BSC VOIDS WELL ASSISTED BACK TO BED.
[2017-04-16 03:38] VITALS: BP 152/48
[2017-04-16 07:15] LABS: BASOPHILS 0 % (0-2); EOSINOPHILS 0 % (0-7); HEMOGLOBIN 9.4 g/dL (12-16); IMMATURE GRANULOCYTES 0.6 % (0-5); LYMPHOCYTES 8.5 % (15-50); MCH 31.2 pg (26.0-34.0); MCHC 33.6 g/dL (31.0-37.0); MEAN PLATELET VOLUME 10.3 fL (7.4-10.4); MONOCYTES 5.2 % (2-11); NEUTROPHILS 85.7 % (40-80); PLATELET COUNT 125 10x3/uL (130-400); RBC 3.01 10x6/uL (4.00-5.40); RDW 14.6 % (11.5-14.5); WBC 6.5 10x3/uL (4.8-10.8)
[2017-04-16 07:25] LABS: ANION GAP 14.6 mmol/L (8-16); CALCIUM 8.6 mg/dL (8.5-10.1); CARBON DIOXIDE 25.5 mmol/L (21.0-32.0); CREATININE - SERUM 2.5 mg/dL (0.6-1.3); MAGNESIUM - SERUM 1.8 mg/dL (1.8-2.4); PHOSPHOROUS 2.2 mg/dL (2.5-4.9); POTASSIUM - SERUM 3.1 mmol/L (3.5-5.1)
--- NOTE | 2017-04-16 07:30 | NUR ---
RESPIRATORY WEANED PT COMPLETELY OFF OF OXYGEN AT THIS TIME.
[2017-04-16 08:22] VITALS: BP 104/56
--- NOTE | 2017-04-16 10:28 | NUR ---
CM met with patient to assess discharge needs. Patient and in room and deny any HH or DME needs. Patient states that she has her to help her and drive her home. IMM served. CM will assist if needed.
--- NOTE | 2017-04-16 11:24 | NUR ---
Wound care consult: Pt is s/p lap colectomy (04/10/17). Abd lap incisions x 3. No chronic skin issues noted.
[2017-04-16 12:02] VITALS: BP 109/66
[2017-04-16] MEDS ORDERED: LEVAQUIN250 MG PO (12:26)
[2017-04-16] MEDS ORDERED: PREDNISONE20 MG PO (12:26)
[2017-04-16] MEDS ORDERED: MUCINEX DM ER1 EAC1 PO (12:26)
[2017-04-16] MEDS ORDERED: IPRAT-ALBUT 0.5-3 ML UPD (12:34)
--- NOTE | 2017-04-16 14:05 | NUR ---
RIGHT SUBCLAVIAN REMOVED WITH CATH TIP INTACT. PRESSURE HELD TO SITE FOR 10 MINUTES. PRESSURE DRESSING APPLIED AND PT REMAINS SUPINE WITH HOB AT 0 DEGREES TO DECREASE THE CHANCE OF BLEEDING.
--- NOTE | 2017-04-16 14:50 | NUR ---
DISCHARGE PAPERWORK REVIEWED WITH PT AND HER SPOUSE. DRESSING TO RIGHT JUGULAR WITHOUT DRAINAGE OR SIGN OF BLEEDING. PROVIDED PT WITH ICE PACK FOR SITE DUE TO RISK OF BLEEDING. WILL DISCHARGE HOME.
--- NOTE | 2017-04-19 11:07 | EC ---
PATIENT:DARLYN JOHN DATE OF SERVICE: 04/10/17 SEX: F MEDICAL RECORD: [id number] DATE OF : 40 LOCATION:D.MS [facility] AGE OF PATIENT: 76 ADMISSION DATE: 04/10/17 REFERRING PHYSICIAN: INTERPRETING PHYSICIAN: ABISAI STEVENS MD ECHOCARDIOGRAM REPORT ECHO CHARGES 4 ECHO COMPLETE CLINICAL DIAGNOSIS: CHF ? ECHOCARDIOGRAPHIC MEASUREMENTS (adult normal given) AC root (d.<3.7cm) 3.1 cm LV Septum d (<1.2 cm> 1.4 cm Valve Excursion 1.7 cm LV Septum (systole) 1.7 cm Left Atria (s.<4.0cm> 3.8 cm LVPW d(<1.2cm) 1.0 cm RV (d.<2.3cm) 2.2 cm LVPW (sytole) 1.6 cm LV diastole(<5.6CM) 4.5 cm MV E-F(>70mm/sec) cm LV systole 2.5 cm LVOT Diameter 1.6 cm MV exc.(>10mm) cm Est.ejection fraction (50-75%) % Pericardial Effusion N DOPPLER: LVIT cm/sec A 178 cm/sec E 137 cm/sec LA cm/sec RVSP 71.0 mmHg LVOT 191 cm/sec AOP1/2T m/s Asc. Ao 267 cm/sec RVOT 120 cm/sec RA cm/sec PA 169 cm/sec AV Gradient Peak 29.0 mmHg AV Mean 13.2 mmHg AV Area 1.4 cm MV Gradient Peak 12.1 mmHg MV Mean 4.3 mmHg MV Area cm COMMENTS: Sap Technical Architect: Marimar MICHAUDOE Security Chief Museum: 3 Dr. Jack TAPE# PACS DATE OF SERVICE: 04/14/2017 Adequate 2D echo, color flow, spectral Doppler, and M-mode. LVH is present. LV internal dimension is normal. Wall motion is normal. EF is greater than or equal to 55%. Aortic valve is sclerotic. No stenosis by Doppler interrogation. The left atrium is normal. Mitral valve shows no prolapse. Mild MR. Right-sided chamber is grossly normal. Mild TR. TRANSINT:[id number] Voice Confirmation ID: [id number] DOCUMENT ID: [id number] 04/17/2017 Edited to correct date of service, dmm. ECHOCARDIOGRAM REPORT [id number] DARLYN JOHN,ABISAI Chavez MD at 1107 CC: [id number] DICTATION DATE: 04/15/17 1028 TOLL LINE INSPECTOR: 04/15/171921 DIS IN 04/16/17 [facility] [address] [place] [id number]
== END 2017-04-16 14:50 | disposition home or self-care (01) | DRG 329 ==
LOC: D.CVICU 06:11 → D.MS 06:11 → D.SDCHOLD 06:11 → D.MS 18:00 → D.CVICU 04-13 06:54 → D.MS 04-15 12:12
PROVIDERS: Anesthesiology; Internal Medicine Pulmonary Disease; ADMIT Surgery
PROC: 0DTF0ZZ Resection of Right Large Intestine, Open Approach (ICD-10-PCS; principal; 2017-04-10 11:45)
PROC: 0WQF0ZZ Repair Abdominal Wall, Open Approach (ICD-10-PCS; 2017-04-10 11:45)
DX: C18.0 Malignant neoplasm of cecum (principal); J96.01 Acute respiratory failure with hypoxia; J18.9 Pneumonia, unspecified organism; Z68.41 Body mass index [BMI] 40.0-44.9, adult; D62 Acute posthemorrhagic anemia; N18.4 Chronic kidney disease, stage 4 (severe); Z79.4 Long term (current) use of insulin; J44.9 Chronic obstructive pulmonary disease, unspecified; J45.909 Unspecified asthma, uncomplicated; K42.9 Umbilical hernia without obstruction or gangrene; E11.65 Type 2 diabetes mellitus with hyperglycemia; Y95 Nosocomial condition; E66.01 Morbid (severe) obesity due to excess calories; D69.6 Thrombocytopenia, unspecified; E87.6 Hypokalemia; E11.22 Type 2 diabetes mellitus with diabetic chronic kidney disease; I12.9 Hypertensive chronic kidney disease with stage 1 through stage 4 chronic kidney disease, or unspecified chronic kidney disease; E78.5 Hyperlipidemia, unspecified; G47.33 Obstructive sleep apnea (adult) (pediatric)

== ENCOUNTER → 2017-09-05 08:03 | Outpatient (CLI) | payer MEDICARE, BC ==
[2017-04-11 13:26] VITALS: BMI 43.6
[~2017-09-05 08:03] MED LIST changes: +IPRAT-ALBUT 0.5-3 ML UPD; +LEVAQUIN250 MG PO; +MUCINEX DM ER1 EAC1 PO; +PREDNISONE20 MG PO
[2017-09-05 09:06] LABS: ALBUMIN 3.6 g/dL (3.4-5.0); BILIRUBIN - DIRECT 0.12 mg/dL (0.00-0.30); BILIRUBIN - INDIRECT 0.44 mg/dL (0.00-1.00); BILIRUBIN - TOTAL 0.56 mg/dL (0.2-1.3); PROTEIN - SERUM 7.1 g/dL (6.4-8.2)
== END | disposition home or self-care (01) ==
LOC: D.US 08:00
PROVIDERS: Internal Medicine Gastroenterology
DX: K76.0 Fatty (change of) liver, not elsewhere classified (principal)

== ENCOUNTER → 2017-11-19 10:59 | Outpatient (CLI) | payer MEDICARE, BC ==
[2017-04-11 13:26] VITALS: BMI 43.6
== END | disposition home or self-care (01) ==
LOC: D.US 11-07 13:30
DX: C18.0 Malignant neoplasm of cecum (principal)

== ENCOUNTER → 2018-03-07 08:52 | Outpatient (CLI) | payer MEDICARE, BC ==
[2017-04-11 13:26] VITALS: BMI 43.6
[~2018-03-07 08:52] MED LIST changes: +PROTONIX40 MG PO
[2018-03-07 10:17] LABS: ALBUMIN 3.6 g/dL (3.4-5.0); BILIRUBIN - DIRECT 0.08 mg/dL (0.00-0.30); BILIRUBIN - INDIRECT 0.29 mg/dL (0.00-1.00); BILIRUBIN - TOTAL 0.37 mg/dL (0.2-1.3); PROTEIN - SERUM 7.8 g/dL (6.4-8.2)
== END | disposition home or self-care (01) ==
LOC: D.US 08:52
PROVIDERS: Internal Medicine Gastroenterology
DX: K76.0 Fatty (change of) liver, not elsewhere classified (principal)

== ENCOUNTER 2018-04-16 10:04 | Day surgery (SDC) | payer MEDICARE, BC ==
[~2018-04-16] VITALS: Ht 154.9 cm; Wt 105.5 kg
--- NOTE | ~2018-04-16 | OP ---
PATIENT NAME: DARLYN JOHN MEDICAL RECORD: [id number] :40 LOCATION:[facility] ADMISSION DATE: SURGEON: JOSUE SEYMOUR DO DATE OF OPERATION: 04/16/2018 PROCEDURE: Colonoscopy with polypectomy. INDICATIONS FOR PROCEDURE: Surveillance colonoscopy based on personal history of colonic adenocarcinoma of the cecum status post yong-colectomy. Her last colonoscopy was performed on 02/20/2017 when the cecal tumor was diagnosed. SCOPE: Olympus video pediatric colonoscope. MEDICATIONS: Propofol 400 mg IV per anesthesia. WITHDRAWAL TIME: 17 minutes. ESTIMATED BLOOD LOSS: Minimal. COMPLICATIONS: None. FINDINGS: Informed consent was given. The patient was made comfortable with the above medication. After reaching an adequate level of sedation by slow IV push, the patient was placed on her left side. A digital rectal examination was performed and was normal. The endoscope was advanced under direct visualization through the rectum to the ileocolonic anastomosis. The endoscope was slowly withdrawn and mucosa was carefully examined. The prep quality was good. On this examination, there was evidence of a prior partial colectomy. The anastomosis site appears to be healing well and appears normal. There is some granulation tissue, which appears normal. No biopsies were taken of this site on today's examination. There was evidence of severe diverticulosis involving the left side of the colon. There was no evidence of diverticulitis. There were 4 polyps visualized on today's examination. One of these was located in the ascending colon. It was a benign appearing sessile polyp, which measured approximately 4-5 mm in diameter. It was removed using a hot snare in 1 piece and completely retrieved. In the transverse colon, there was a benign appearing sessile polyp, which measured approximately 8 mm in diameter. It was removed using a hot snare in 1 piece and completely retrieved. In the descending colon, there were two separate benign-appearing sessile polyps, which ranged from 3-4 mm in diameter. They were both removed using hot forceps and completely removed. Retroflexion was performed in the rectum with visualization of grade I internal hemorrhoids without active bleeding. The endoscope was withdrawn from the patient. The patient tolerated the procedure well and there were no complications. IMPRESSION: 1. Four polyps as described above, removed using a combination of a hot snare and hot forceps. 2. Severe diverticulosis involving the left side of the colon. 3. Evidence of a prior partial colectomy. 4. Grade I internal hemorrhoids without bleeding. PLAN AND RECOMMENDATIONS: 1. Discharge home when recovery parameters are met. 2. Follow up biopsy specimen results. OPERATIVE REPORT [id number] JOHNDARLYN Kathy 3. Continue high fiber diet. 4. Continue current medications. 5. Recall colonoscopy in 1 year for continued surveillance. TRANSINT:[id number] Voice Confirmation ID: [id number] DOCUMENT ID: [id number] JOSUE SEYMOUR DO at 1616 CC: [id number] DICTATION DATE: 04/16/18 1330 PUBLIC RELATIONS REPRESENTATIVE: 04/16/18 1342 [facility] 04/16/18 [place] [address] [place] [address]
[~2018-04-16 10:04] MED LIST changes: -PROTONIX40 MG PO
[2018-04-16 10:29] LABS: HEMATOCRIT 43.3 % (36.0-48.0); MCH 32.8 pg (26.0-34.0); MCHC 34.6 g/dL (31.0-37.0); MCV 94.5 fL (80.0-100.0); MEAN PLATELET VOLUME 9.3 fL (7.4-10.4); RBC 4.58 10x6/uL (4.00-5.40); RDW 13.6 % (11.5-14.5); WBC 9.7 10x3/uL (4.8-10.8)
[2018-04-16 10:48] LABS: ANION GAP 13.5 mmol/L (8-16); CALCIUM 9.4 mg/dL (8.5-10.1); CREATININE - SERUM 1.8 mg/dL (0.6-1.3); POTASSIUM - SERUM 3.5 mmol/L (3.5-5.1)
[2018-04-16 10:56] VITALS: Ht 154.9 cm; Wt 105.5 kg
[2018-04-16] MEDS ORDERED: PROTONIX40 MG PO (11:05)
== END 2018-04-16 14:25 | disposition home or self-care (01) ==
LOC: D.OPS 10:04
PROVIDERS: Anesthesiology
DX: K63.5 Polyp of colon (principal); Z85.038 Personal history of other malignant neoplasm of large intestine

== ENCOUNTER → 2018-05-02 09:43 | Outpatient (CLI) | payer MEDICARE, BC ==
[2018-04-16 10:56] VITALS: BMI 43.9
[~2018-05-02 09:43] MED LIST changes: +PROTONIX40 MG PO
== END | disposition home or self-care (01) ==
LOC: D.US 09:43
DX: N28.1 Cyst of kidney, acquired (principal); N18.4 Chronic kidney disease, stage 4 (severe); E11.22 Type 2 diabetes mellitus with diabetic chronic kidney disease

== ENCOUNTER → 2018-09-11 08:35 | Outpatient (CLI) | payer MEDICARE, BC ==
[2018-04-16 10:56] VITALS: BMI 43.9
[2018-09-11 09:57] LABS: ALBUMIN 3.4 g/dL (3.4-5.0); BILIRUBIN - DIRECT 0.13 mg/dL (0.00-0.30); BILIRUBIN - INDIRECT 0.27 mg/dL (0.00-1.00); BILIRUBIN - TOTAL 0.4 mg/dL (0.2-1.3); PROTEIN - SERUM 7.3 g/dL (6.4-8.2)
== END | disposition home or self-care (01) ==
LOC: D.US 08:35
PROVIDERS: Internal Medicine Gastroenterology
DX: K76.0 Fatty (change of) liver, not elsewhere classified (principal)

== ENCOUNTER → 2019-02-04 06:59 | Outpatient (CLI) | payer MEDICARE, BC ==
[2018-04-16 10:56] VITALS: BMI 43.9
== END | disposition home or self-care (01) ==
LOC: D.US 06:59
PROVIDERS: ATTEND Internal Medicine Hematology & Oncology
DX: C18.0 Malignant neoplasm of cecum (principal); K86.9 Disease of pancreas, unspecified

== ENCOUNTER → 2019-02-16 07:24 | Outpatient (CLI) | payer MEDICARE, BC ==
[2018-04-16 10:56] VITALS: BMI 43.9
[2019-02-16 09:06] LABS: ALBUMIN 3.6 g/dL (3.4-5.0); BILIRUBIN - DIRECT 0.13 mg/dL (0.00-0.30); BILIRUBIN - INDIRECT 0.34 mg/dL (0.00-1.00); BILIRUBIN - TOTAL 0.47 mg/dL (0.2-1.3); PROTEIN - SERUM 7.4 g/dL (6.4-8.2)
== END | disposition home or self-care (01) ==
LOC: D.MRI 07:24
PROVIDERS: ATTEND Internal Medicine Gastroenterology
DX: K76.0 Fatty (change of) liver, not elsewhere classified (principal)

== ENCOUNTER 2019-06-04 09:47 | Inpatient (IN) | payer MEDICARE, BC ==
[~2019-06-04] VITALS: Ht 154.9 cm; Wt 100.2 kg
[2019-06-04] MEDS ORDERED: CUVITRU (09:52)
[2019-06-04] MEDS ORDERED: FERROUS SULFAT325 MG PO (09:53)
[2019-06-04] MEDS ORDERED: FLUTICASONE PRO16 GM NASAL (09:54)
[2019-06-04] MEDS ORDERED: FUROSEMIDE20 MG PO (09:54)
[2019-06-04] MEDS ORDERED: SYNTHROID88 MCG PO (09:58)
[2019-06-04] MEDS ORDERED: HYDROCODONE-A1 UDTA2 PO (10:00)
[2019-06-04 10:52] LABS: BASOPHILS 0.1 % (0-2); EOSINOPHILS 1.4 % (0-7); HEMATOCRIT 34.3 % (36.0-48.0); HEMOGLOBIN 11.8 g/dL (12-16); IMMATURE GRANULOCYTES 0.3 % (0-5); LYMPHOCYTES 17.2 % (15-50); MCH 31.3 pg (26.0-34.0); MCHC 34.4 g/dL (31.0-37.0); MEAN PLATELET VOLUME 9.8 fL (7.4-10.4); MONOCYTES 9.4 % (2-11); NEUTROPHILS 71.6 % (40-80); RBC 3.77 10x6/uL (4.00-5.40); RDW 14.8 % (11.5-14.5); WBC 7.7 10x3/uL (4.8-10.8)
[2019-06-04 10:54] LABS: PLATELET COUNT 104 10x3/uL (130-400)
[2019-06-04 11:04] LABS: APTT 27.7 SECONDS (22.8-39.4); INR 1.14 (0.85-1.17); PROTIME 14.1 SECONDS (11.6-15.0)
[2019-06-04 11:06] LABS: D-DIMER-QUANTITATIVE 3.64 ug/mLFEU (0.20-0.54)
[2019-06-04 11:22] LABS: ALBUMIN 3.3 g/dL (3.4-5.0); ALKALINE PHOSPHATASE 58 U/L (46-116); ALT (SGPT) 142 U/L (10-68); CALC OSMOLALITY 286 mosm/kg (275-300); CALCIUM 8.7 mg/dL (8.5-10.1); CARBON DIOXIDE 29.7 mmol/L (21.0-32.0); CHLORIDE - SERUM 103 mmol/L (98-107); GLUCOSE 171 mg/dL (74-106); PROTEIN - SERUM 6.5 g/dL (6.4-8.2); SODIUM 140 mmol/L (136-145); UREA NITROGEN 24 mg/dL (7-18); eGFR NON AFRICAN AMERICAN 25 mL/min (90-120)
[2019-06-04 11:33] LABS: CKMB 0.5 U/L (0.0-3.6); CREATINE KINASE 188 UL (21-215); PRO BNP 1200 pg/mL (0-450)
[2019-06-04 11:35] LABS: TROPONIN-I < 0.017 ng/mL (0.000-0.060)
--- NOTE | 2019-06-04 12:40 | NUR ---
PROVIDED PT WITH
--- NOTE | 2019-06-04 12:53 | MORECARE ---
CASE MANAGEMENT DISCHARGE SUMMARY PATIENT: DARLYN JOHN UNIT: [id number] ADM DATE: 06/04/19 AGE: 78 : 40 SEX: F ROOM/BED: D.2234 AUTHOR: SAMIA ALANIS PHYSICIAN: REFERRING PHYSICIAN: KRISTA DEL CID MD DATE OF SERVICE: 06/04/19 Discharge Plan Patient Name: DARLYN JOHN [facility] [facility] 1940 Planned Disposition: Home or Self Care Anticipated Discharge Date: 06/06/19 Discharge Date: Expected LOS: 2 Initial Reviewer: [email or web address] Initial Review Date: 06/04/2019 Generated: 06/04/19 1:52 pm Patient Name: DARLYN JOHN Page [phone] at 1253 All edits/amendments must be made on the electronic document DICTATION DATE: 06/04/19 1252 MARKETING SUMMER INTERN: ALEXEI 06/04/19 1252 RPT#: [id number] DC DATE: STATUS: ADM IN [facility] [address] [place] [address] END OF REPORT
--- NOTE | 2019-06-04 13:00 | MORECARE ---
CASE MANAGEMENT DISCHARGE SUMMARY PATIENT: DARLYN JOHN UNIT: [id number] ADM DATE: 06/04/19 AGE: 78 : 40 SEX: F ROOM/BED: D.2234 AUTHOR: ZEKE,DOC PHYSICIAN: REFERRING PHYSICIAN: KRISTA BARRON MD DATE OF SERVICE: 06/04/19 Discharge Plan Patient Name: DARLYN JOHN Facility: [facility]:[place] : 1940 Planned Disposition: Home or Self Care Anticipated Discharge Date: 06/06/19 Discharge Date: Expected LOS: 2 Initial Reviewer: [email or web address] Initial Review Date: 06/04/2019 Generated: 06/04/19 2:00 pm DCP- Discharge Planning Updated by [email or web address]: Elizabeth Johnson on 06/04/19 11:[address] DC PLAN: Return home independently with spouse. ANTICIPATED DC NEEDS: Denied known dc needs. CM met with patient and her , Koby, to complete initial dc planning assessment. CM educated patient on the CM role and verbal consent given by patient to complete assessment. CM verified patient's address, phone number, and emergency contact phone numbers. Patient lives at home with her and reports she is independent in her care at home. At discharge patient plans to return home and feels this is a safe discharge. CM discussed availability of home health, rehab services, and medical equipment. Patient denied known discharge needs at this time. Patient reports her will transport her home at time of discharge. CM will continue to follow and will assist as needed with dc plans/needs. Elizabeth Johnson RN, [facility] DCPIA - Discharge Planning Initial Assessment Updated by [email or web address]: Elizabeth Johnson on 06/04/19 12:54 pm * Is the patient Alert and Oriented? Yes * How many steps to enter\exit or inside your home? chair lift * PCP Dr. Barron * Pharmacy [facility]. * Preadmission Environment Home with Family * ADLs Independent * Equipment CPAP Glucometer * List name and contact numbers for known caregivers / representatives who currently or will assist patient after discharge: Koby John - spouse - [phone] Juan John - son - [phone] * Verbal permission to speak to the caregivers and representatives has been obtained from the patient. Yes * Community resources currently utilized None * Additional services required to return to the preadmission environment? No * Can the patient safely return to the preadmission environment? Yes * Has this patient been hospitalized within the prior 30 days at any hospital? Yes Last DP export: 06/04/19 11:53 a Patient Name: DARLYN JOHN Page [id number] at 1300 All edits/amendments must be made on the electronic document DICTATION DATE: 06/04/19 1300 PIE CRIMPING MACHINE OPERATOR: ALEXEI 06/04/19 1300 RPT#: [id number] DC DATE: STATUS: ADM IN [facility] [address] [place] [address] END OF REPORT
[2019-06-04 15:07] VITALS: BP 150/46; BMI 41.8
--- NOTE | 2019-06-04 16:08 | NUR ---
PATIENT REQUESTS DR STERLING BE NOTIFIED THAT SHE IS HERE.
[2019-06-04 16:29] VITALS: BP 140/49
--- NOTE | 2019-06-04 19:15 | NUR ---
PATIENT ALERT AND ORIENTED X4. PATIENTS AND SON AT BEDSIDE. PATIENT STATES PAIN IS A 2 OUT OF 10, CLAIMS IT ONLY HURT WHEN SHE MOVES AROUND A LOT. ENCOURAGED PATIENT TO CALL WITH ANY NEEDS. BED IN LOW POSITION. CALL LIGHT AND TABLE WITHIN REACH.
[2019-06-04 20:58] VITALS: BP 144/57
[2019-06-05 01:31] VITALS: BP 159/52
[2019-06-05 05:54] VITALS: BP 178/58
[2019-06-05 06:46] LABS: BASOPHILS 0 % (0-2); EOSINOPHILS 1.7 % (0-7); HEMATOCRIT 33.4 % (36.0-48.0); HEMOGLOBIN 11.2 g/dL (12-16); IMMATURE GRANULOCYTES 0.2 % (0-5); LYMPHOCYTES 18.9 % (15-50); MCHC 33.5 g/dL (31.0-37.0); MCV 92.5 fL (80.0-100.0); MEAN PLATELET VOLUME 10.4 fL (7.4-10.4); MONOCYTES 8.1 % (2-11); NEUTROPHILS 71.1 % (40-80); PLATELET COUNT 119 10x3/uL (130-400); RBC 3.61 10x6/uL (4.00-5.40); RDW 14.9 % (11.5-14.5); WBC 8.1 10x3/uL (4.8-10.8)
[2019-06-05 07:13] LABS: ANION GAP 13.3 mmol/L (8-16); CALCIUM 9.3 mg/dL (8.5-10.1); CARBON DIOXIDE 25.6 mmol/L (21.0-32.0); CREATININE - SERUM 1.7 mg/dL (0.6-1.3); MAGNESIUM - SERUM 2.1 mg/dL (1.8-2.4); POTASSIUM - SERUM 3.9 mmol/L (3.5-5.1)
[2019-06-05 09:28] VITALS: BP 181/65
[2019-06-05 12:39] VITALS: BMI 41.7
[2019-06-05 14:31] VITALS: Ht 154.9 cm; Wt 100.2 kg
[2019-06-05 16:52] VITALS: BP 163/72
[2019-06-05 20:15] VITALS: BP 162/64
--- NOTE | 2019-06-05 22:36 | NUR ---
patient resting in bed alert and orented able to voice needs and wants to staff. iv to right uper arm in place and paten o2 at 4l and c-pap at night. scd's [facility] . no needs at this time water and call light in reach.
[2019-06-06 00:06] VITALS: BP 154/58
[2019-06-06 04:02] VITALS: BP 186/77
[2019-06-06 05:24] LABS: BASOPHILS 0.1 % (0-2); EOSINOPHILS 2.6 % (0-7); HEMATOCRIT 34.9 % (36.0-48.0); HEMOGLOBIN 11.8 g/dL (12-16); IMMATURE GRANULOCYTES 0.4 % (0-5); LYMPHOCYTES 27.4 % (15-50); MCH 31.3 pg (26.0-34.0); MCHC 33.8 g/dL (31.0-37.0); MCV 92.6 fL (80.0-100.0); MEAN PLATELET VOLUME 10.8 fL (7.4-10.4); MONOCYTES 8.2 % (2-11); NEUTROPHILS 61.3 % (40-80); PLATELET COUNT 118 10x3/uL (130-400); RBC 3.77 10x6/uL (4.00-5.40); WBC 7.6 10x3/uL (4.8-10.8)
[2019-06-06 05:53] LABS: ANION GAP 16.6 mmol/L (8-16); CALCIUM 8.6 mg/dL (8.5-10.1); CARBON DIOXIDE 24.4 mmol/L (21.0-32.0); CREATININE - SERUM 1.6 mg/dL (0.6-1.3)
--- NOTE | 2019-06-06 07:31 | NUR ---
PT IS RESTING IN BED WITH EYES OPEN. RESPIRATIONS ARE EVEN AND UNLABORED. PERSONAL CPAP MACHINE ON ON AT THIS TIME. LAP SITES NOTED TO ABDOMEN X 6. PT DENIES ABILITY TO PASS GAS. BS ARE HYPOACTIVE X 4. PT REPORTS LAST BM ON Saturday06/01/19 PRIOR TO SURGERY. PT DENIES PRESENE OF N/V/PAIN/SOB/DYSPNEA AT THIS TIME. BED IS IN THE LOWEST POSITION. CALL LIGHT AND BEDSIDE TABLE ARE WITHIN REACH. SIDE RAILS X 2. INCENTIVE SPIROMETER AT BEDSIDE. FLUTTER VALVE AT BEDSIDE. PT DEMONSTRATES PROPER USE/TECHNIQUE. PT DENIES FURTHER NEEDS. WILL CONT TO MONITOR.
[2019-06-06 09:16] VITALS: BP 177/70
[2019-06-06 12:30] VITALS: BP 168/70
[2019-06-06 20:40] VITALS: BP 152/68
--- NOTE | 2019-06-06 22:16 | NUR ---
shannan and cecy able to voice needs and wants to staff. left arm reserve, fistula in place. IV to right arm with ns at 15, lap sites CDI , O2 at 4 l via n/c and c-pap at night. no needs at this time.
[2019-06-07 01:10] VITALS: BP 139/53
[2019-06-07 05:18] VITALS: BP 175/85
[2019-06-07 06:15] LABS: BASOPHILS 0.1 % (0-2); EOSINOPHILS 2.4 % (0-7); HEMATOCRIT 32.7 % (36.0-48.0); HEMOGLOBIN 10.9 g/dL (12-16); IMMATURE GRANULOCYTES 0.3 % (0-5); LYMPHOCYTES 19.4 % (15-50); MCH 30.5 pg (26.0-34.0); MCHC 33.3 g/dL (31.0-37.0); MCV 91.6 fL (80.0-100.0); MONOCYTES 8.5 % (2-11); NEUTROPHILS 69.3 % (40-80); RBC 3.57 10x6/uL (4.00-5.40); RDW 14.8 % (11.5-14.5); WBC 7.6 10x3/uL (4.8-10.8)
[2019-06-07 06:22] LABS: PLATELET COUNT 155 10x3/uL (130-400)
[2019-06-07 06:54] LABS: ANION GAP 13.2 mmol/L (8-16); CALCIUM 8.8 mg/dL (8.5-10.1); CARBON DIOXIDE 25.7 mmol/L (21.0-32.0); CREATININE - SERUM 1.6 mg/dL (0.6-1.3); POTASSIUM - SERUM 3.9 mmol/L (3.5-5.1)
[2019-06-07 08:38] VITALS: BP 119/65
--- NOTE | 2019-06-07 09:11 | NUR ---
PT SITTING UP IN CHAIR AT BEDSIDE. NO ACUTE DISTRESS NOTED AT THIS TIME. PT DOES REPORT BECOMING SOB WITH EXERTION. O2 @ 3L NC IN PLACE. PT DENIES PAIN AT THIS TIME. IV TO RIGHT UPPER ARM SALINE LOC'D. SITE WITHOUT REDNESS OR EDEMA. LAP SITES X 6 TO ABDOMEN WITH STERI STRIPS INTACT, SITES WITHOUT REDNESS OR DRAINAGE. PT SELF USE INCENTIVE SPEROMETER. DENIES FURTHER NEEDS AT THIS TIME. CL WITHIN REACH. ENCOURAGED TO CALL WITH NEEDS.
[2019-06-07 12:40] VITALS: BP 170/60
[2019-06-07 17:20] VITALS: BP 135/62
--- NOTE | 2019-06-07 19:25 | NUR ---
UP IN BED WITH FAMILY AT BEDSIDE. ABLE TO VOICE ALL NEEDS. DENIES ANY PAIN AT THIS TIME. IV TO RIGHT HAND IS SALINE LOC AT THIS TIME. O2 VIA NC AT 3L NOTED. WILL NOTE ANY CHANGE.
[2019-06-07 20:00] VITALS: BP 165/62
[2019-06-08 04:00] VITALS: BP 173/58
--- NOTE | 2019-06-08 04:06 | NUR ---
I have reviewed this patient and I concur with the Shift Assessment completed by the Licensed Practical Nurse today this shift.
[2019-06-08 06:33] LABS: BASOPHILS 0.2 % (0-2); EOSINOPHILS 1.9 % (0-7); HEMATOCRIT 30.8 % (36.0-48.0); HEMOGLOBIN 10.5 g/dL (12-16); IMMATURE GRANULOCYTES 0.3 % (0-5); LYMPHOCYTES 20.2 % (15-50); MCHC 34.1 g/dL (31.0-37.0); MCV 90.9 fL (80.0-100.0); MEAN PLATELET VOLUME 9.8 fL (7.4-10.4); MONOCYTES 8.1 % (2-11); NEUTROPHILS 69.3 % (40-80); PLATELET COUNT 141 10x3/uL (130-400); RBC 3.39 10x6/uL (4.00-5.40); RDW 14.8 % (11.5-14.5); WBC 6.2 10x3/uL (4.8-10.8)
[2019-06-08 07:20] LABS: CALCIUM 8.8 mg/dL (8.5-10.1); CARBON DIOXIDE 23.7 mmol/L (21.0-32.0); CREATININE - SERUM 1.4 mg/dL (0.6-1.3); POTASSIUM - SERUM 3.7 mmol/L (3.5-5.1)
--- NOTE | 2019-06-08 08:30 | NUR ---
PATIENT RIDING A INDOOR BIKE AFTER EATING HER BREAKFAST. NO NEEDS AT THIS TIME. RAOUL AT THE BEDSIDE
[2019-06-08 08:52] VITALS: BP 173/64
[2019-06-08 12:03] VITALS: BP 193/84
--- NOTE | 2019-06-08 15:26 | NUR ---
PATIENT ASLEEP WITH PULSE OX ON FINGER. PULSE OX READ 96% ON ROOM AIR. CL IN REACH. NO NEEDS AT THIS TIME. SAYS SHE GETS TO DC SAT INSTEAD OF BECAUSE RAOUL IS HAVING CATARACT SURGERY TOMORROW. WCTM
[2019-06-08 17:02] VITALS: BP 152/50
--- NOTE | 2019-06-08 18:01 | NUR ---
IN ROOM. CL IN REACH. NO NEEDS AT THIS TIME.
--- NOTE | 2019-06-08 19:18 | NUR ---
IN ROOM, UP IN CHAIR, AT SIDE, WORKING ON HOME PT BIKE MACHINE, SHOWS NO S/S OF ANY DISTRESS. ABLE TO VOICE ALL NEEDS, DENIES ANY NEEDS TO BE MET AT THIS TIME. WILL NOTE ANY CHANGE.
[2019-06-08 20:34] VITALS: BP 174/63
--- NOTE | 2019-06-08 22:08 | NUR ---
AT 2030, REQUESTED PAIN MEDICATION. AT THIS TIME, RESTING QUIETLY IN BED WITH NO S/S OF ANY DISTRESS.
[2019-06-09 01:22] VITALS: BP 167/67
--- NOTE | 2019-06-09 03:08 | NUR ---
I have reviewed this patient and I concur with the Shift Assessment completed by the Licensed Practical Nurse today this shift.
--- NOTE | 2019-06-09 04:06 | NUR ---
at 0300, requested tablet for pain, given PER NOV, AT THIS TIME PT IS RESTING QUIETLY WITH EYES CLOSED. WILL NOTE ANY CHANGE.
[2019-06-09 05:18] VITALS: BP 172/59
[2019-06-09 06:10] LABS: BASOPHILS 0.3 % (0-2); EOSINOPHILS 2.6 % (0-7); HEMATOCRIT 31.6 % (36.0-48.0); HEMOGLOBIN 10.5 g/dL (12-16); IMMATURE GRANULOCYTES 0.5 % (0-5); LYMPHOCYTES 27.5 % (15-50); MCH 30.5 pg (26.0-34.0); MCHC 33.2 g/dL (31.0-37.0); MCV 91.9 fL (80.0-100.0); MEAN PLATELET VOLUME 9.6 fL (7.4-10.4); MONOCYTES 8.8 % (2-11); NEUTROPHILS 60.3 % (40-80); PLATELET COUNT 152 10x3/uL (130-400); RBC 3.44 10x6/uL (4.00-5.40); WBC 6.5 10x3/uL (4.8-10.8)
[2019-06-09 06:37] LABS: CALCIUM 8.5 mg/dL (8.5-10.1); CARBON DIOXIDE 24.9 mmol/L (21.0-32.0); CREATININE - SERUM 1.4 mg/dL (0.6-1.3); POTASSIUM - SERUM 3.9 mmol/L (3.5-5.1)
[2019-06-09 08:57] VITALS: BP 156/75
--- NOTE | 2019-06-09 11:01 | NUR ---
PATIENT SITTING UP IN CHAIR. USING BICYCLE. CL IN REACH. FRESH WATER PROVIDED. NO FURTHER NEEDS AT THIS TIME.
[2019-06-09 12:11] VITALS: BP 183/84
--- NOTE | 2019-06-09 18:01 | NUR ---
RAOUL SAYS WE NEED ANOTHER OPTION ABOUT THE STOOL. WE HAVE DONE A STOOL SOFTNER AND SUPPOSITORY. SAYS HE PUT ON A GLOVE AND MASSAGED IT. THEY TRIED WALKING AND IT IS NOW CAUSING SPASMS WITH HER INNER SUTURES
[2019-06-09 19:07] VITALS: BP 148/92
--- NOTE | 2019-06-09 21:00 | NUR ---
LYING QUEITLY WITH NO DISTRESS NOTED. RESP EVEN AND UNLABORED. SL TO RIGHT HAND WITHOUT REDNESS OR CITLALLI NOTED. UP AD CIERRA TO BATHROOM. CL IN REACH
[2019-06-09 22:08] VITALS: BP 162/55
[2019-06-10 00:50] VITALS: BP 171/54
--- NOTE | 2019-06-10 01:43 | NUR ---
I have reviewed this patient and I concur with the Shift Assessment completed by the Licensed Practical Nurse today this shift.
[2019-06-10 05:34] VITALS: BP 133/40
[2019-06-10 09:00] VITALS: BP 148/58
[2019-06-10 12:05] VITALS: BP 168/61
--- NOTE | 2019-06-10 12:38 | NUR ---
NUTRITION F/U PT TOLERATING FULL LIQUID DIET. NOTE PLANNED DC FOR TODAY. RD FOLLOWING
[2019-06-10] MEDS ORDERED: HYDRALAZINE HCL25 MG PO (13:27)
--- NOTE | 2019-06-10 14:21 | MORECARE ---
CASE MANAGEMENT DISCHARGE SUMMARY PATIENT: DARLYN JOHN UNIT: [id number] ADM DATE: 06/04/19 AGE: 78 : 40 SEX: F ROOM/BED: D.2234 AUTHOR: SAMIA ALANIS PHYSICIAN: REFERRING PHYSICIAN: KRISTA BARRON MD DATE OF SERVICE: 06/10/19 Discharge Plan Patient Name: DARLYN JOHN Facility: [facility]:[place] : 1940 Planned Disposition: Home or Self Care Anticipated Discharge Date: 06/06/19 Discharge Date: Expected LOS: 2 Initial Reviewer: [email or web address] Initial Review Date: 06/04/2019 Generated: 06/10/19 3:21 pm Comments DCP- Discharge Planning Updated by [email or web address]: Serena Carballo on 06/10/19 1:[address] Patient Name: DARLYN JOHN Encounter No: [id number] : 1940 Primary Insurance: MEDICARE A & B Anticipated DC Date: 06-06-2019 Planned Disposition: Home or Self Care External Planned Provider: : DCP follow-up note: Patient and family in agreement with discharge plan. No changes to plan. Case management will follow and assist as needed. Serena Carballo DCP- Discharge Planning Updated by [email or web address]: Elizabeth Johnson on 06/04/19 11:[address] DC PLAN: Return home independently with spouse. ANTICIPATED DC NEEDS: Denied known dc needs. CM met with patient and her , Koby, to complete initial dc planning assessment. CM educated patient on the CM role and verbal consent given by patient to complete assessment. CM verified patient's address, phone number, and emergency contact phone numbers. Patient lives at home with her and reports she is independent in her care at home. At discharge patient plans to return home and feels this is a safe discharge. CM discussed availability of home health, rehab services, and medical equipment. Patient denied known discharge needs at this time. Patient reports her will transport her home at time of discharge. CM will continue to follow and will assist as needed with dc plans/needs. Elizabeth Johnson RN, [facility] DCPIA - Discharge Planning Initial Assessment Updated by [email or web address]: Elizabeth Johnson on 06/04/19 12:54 pm * Is the patient Alert and Oriented? Yes * How many steps to enter\exit or inside your home? chair lift * PCP Dr. Barron * Pharmacy [facility] on [address]. * Preadmission Environment Home with Family * ADLs Independent * Equipment CPAP Glucometer * List name and contact numbers for known caregivers / representatives who currently or will assist patient after discharge: Koby John - spouse - [phone] Juan John - son - [phone] * Verbal permission to speak to the caregivers and representatives has been obtained from the patient. Yes * Community resources currently utilized None * Additional services required to return to the preadmission environment? No * Can the patient safely return to the preadmission environment? Yes * Has this patient been hospitalized within the prior 30 days at any hospital? Yes Coverage Notice Reviewer: [email or web address] Katerina Carballo Notice Issued Date-Time: 06/10/2019 14:17 Notice Type: IM Discharge Notice Notice Delivered To: Patient Relationship to Patient: Self Welfare Service Aide Name: Delivery Method: HAND - Hand Delivered [place] Days: Prior Verbal Notification: Recipient Understood Notice: Yes Recipient Signature: Yes Med Rec Note Co-signed by Attending: Coverage Notice Comment: IMM delivered, signed, given, copy placed in MR Last DP export: 06/04/19 12:00 p Patient Name: DARLYN JOHN Page 24513 at 1421 All edits/amendments must be made on the electronic document DICTATION DATE: 06/10/191420 RELIEF SALESPERSON: ALEXEI 06/10/19 142 RPT#: [id number] DC DATE: STATUS: ADM IN [facility] [address] [place] [address] END OF REPORT
--- NOTE | 2019-06-10 16:16 | NUR ---
DISCHARGE INSTRUCTIONS SEEMS TO UNDERSTAND INSTRUCTION . IV OUT TIP INTACT. LEFT WITH HOSPITAL STAFF TO GO HOME WITH .
--- NOTE | 2019-06-12 15:17 | MORECARE ---
CASE MANAGEMENT DISCHARGE SUMMARY PATIENT: DARLYN JOHN UNIT: [id number] ADM DATE: 06/04/19 AGE: 78 : 40 SEX: F ROOM/BED: D.2234 AUTHOR: SAMIA ALANIS PHYSICIAN: REFERRING PHYSICIAN: KRISTA BARRON MD DATE OF SERVICE: 06/12/19 Discharge Plan Patient Name: DARLYN JOHN Facility: [facility]:[place] : 1940 Planned Disposition: Home or Self Care Anticipated Discharge Date: 06/06/19 Discharge Date: 06/10/2019 Expected LOS: 2 Initial Reviewer: [email or web address] Initial Review Date: 06/04/2019 Generated: 06/12/19 4:16 pm Comments DCP- Discharge Planning Updated by [email or web address]: Serena Carballo on 06/10/19 1:[address] Patient Name: DARLYN JOHN Encounter No: [id number] : 1940 Primary Insurance: MEDICARE A & B Anticipated DC Date: 06-06-2019 Planned Disposition: Home or Self Care External Planned Provider: : DCP follow-up note: Patient and family in agreement with discharge plan. No changes to plan. Case management will follow and assist as needed. Serena Carballo DCP- Discharge Planning Updated by [email or web address]: Elizabeth Johnson on 06/04/19 11:[address] DC PLAN: Return home independently with spouse. ANTICIPATED DC NEEDS: Denied known dc needs. CM met with patient and her , Koby, to complete initial dc planning assessment. CM educated patient on the CM role and verbal consent given by patient to complete assessment. CM verified patient's address, phone number, and emergency contact phone numbers. Patient lives at home with her and reports she is independent in her care at home. At discharge patient plans to return home and feels this is a safe discharge. CM discussed availability of home health, rehab services, and medical equipment. Patient denied known discharge needs at this time. Patient reports her will transport her home at time of discharge. CM will continue to follow and will assist as needed with dc plans/needs. Elizabeth Johnson RN, [facility] DCPIA - Discharge Planning Initial Assessment Updated by [email or web address]: Elizabeth Johnson on 06/04/19 12:54 pm * Is the patient Alert and Oriented? Yes * How many steps to enter\exit or inside your home? chair lift * PCP Dr. Barron * Pharmacy [facility] on [address]. * Preadmission Environment Home with Family * ADLs Independent * Equipment CPAP Glucometer * List name and contact numbers for known caregivers / representatives who currently or will assist patient after discharge: Koby John - spouse - [phone] Juan John - son - [phone] * Verbal permission to speak to the caregivers and representatives has been obtained from the patient. Yes * Community resources currently utilized None * Additional services required to return to the preadmission environment? No * Can the patient safely return to the preadmission environment? Yes * Has this patient been hospitalized within the prior 30 days at any hospital? Yes Coverage Notice Reviewer: [id number] Katerina Carballo Notice Issued Date-Time: 06/10/2019 14:17 Notice Type: IM Discharge Notice Notice Delivered To: Patient Relationship to Patient: [employer] S[employer] Name: Delivery Method: HAND - Hand Delivered [place] Days: Prior Verbal Notification: Recipient Understood Notice: Yes Recipient Signature: Yes Med Rec Note Co-signed by Attending: Coverage Notice Comment: IMM delivered, signed, given, copy placed in MR Last DP export: 06/10/19 1:21 p Patient Name: DARLYN JOHN Page [id number] at 1517 All edits/amendments must be made on the electronic document DICTATION DATE: 06/12/191515 REAL ESTATE PARALEGAL: ALEXEI 06/12/191515 RPT#: [id number] DC DATE:06/10/19 STATUS: DIS IN [facility] [address] [place] [address] END OF REPORT
== END 2019-06-10 16:17 | disposition home or self-care (01) | DRG 205 ==
LOC: D.ER 09:47 → D.MS 12:37
PROVIDERS: Emergency Medicine; ADMIT Family Medicine; ATTEND Family Medicine
DX: J95.89 Other postprocedural complications and disorders of respiratory system, not elsewhere classified (principal); J18.9 Pneumonia, unspecified organism; J96.01 Acute respiratory failure with hypoxia; I50.31 Acute diastolic (congestive) heart failure; J81.1 Chronic pulmonary edema; Z68.41 Body mass index [BMI] 40.0-44.9, adult; D80.3 Selective deficiency of immunoglobulin G [IgG] subclasses; I13.0 Hypertensive heart and chronic kidney disease with heart failure and stage 1 through stage 4 chronic kidney disease, or unspecified chronic kidney disease; E11.22 Type 2 diabetes mellitus with diabetic chronic kidney disease; N18.3 Chronic kidney disease, stage 3 (moderate); J44.9 Chronic obstructive pulmonary disease, unspecified; E66.01 Morbid (severe) obesity due to excess calories; G47.33 Obstructive sleep apnea (adult) (pediatric); I25.10 Atherosclerotic heart disease of native coronary artery without angina pectoris; D64.9 Anemia, unspecified; D69.6 Thrombocytopenia, unspecified; M10.9 Gout, unspecified; E03.9 Hypothyroidism, unspecified; E55.9 Vitamin D deficiency, unspecified

== ENCOUNTER → 2019-09-23 10:15 | Outpatient (CLI) | payer MEDICARE, BC ==
[2019-06-05 14:31] VITALS: BMI 41.7
[~2019-09-23 10:15] MED LIST changes: +CUVITRU; +FERROUS SULFAT325 MG PO; +FLUTICASONE PRO16 GM NASAL; +FUROSEMIDE20 MG PO; +HYDRALAZINE HCL25 MG PO; +HYDROCODONE-A1 UDTA2 PO; +SYNTHROID88 MCG PO
== END | disposition home or self-care (01) ==
LOC: D.RT 10:15
PROVIDERS: ATTEND Internal Medicine Pulmonary Disease
DX: J44.9 Chronic obstructive pulmonary disease, unspecified (principal)

== ENCOUNTER → 2020-02-24 09:08 | Outpatient (CLI) | payer MEDICARE, BC ==
[2019-06-05 14:31] VITALS: BMI 41.7
== END | disposition home or self-care (01) ==
LOC: D.CT 09:08
PROVIDERS: ATTEND Internal Medicine Hematology & Oncology
DX: C18.0 Malignant neoplasm of cecum (principal); K86.9 Disease of pancreas, unspecified; Z12.31 Encounter for screening mammogram for malignant neoplasm of breast

== ENCOUNTER → 2021-02-22 09:14 | Outpatient (CLI) | payer MEDICARE, BC ==
[2019-06-05 14:31] VITALS: BMI 41.7
== END | disposition home or self-care (01) ==
LOC: D.CT 09:14
PROVIDERS: ATTEND Internal Medicine Hematology & Oncology
DX: C18.0 Malignant neoplasm of cecum (principal); K86.9 Disease of pancreas, unspecified; Z12.31 Encounter for screening mammogram for malignant neoplasm of breast; R91.1 Solitary pulmonary nodule